=== PATIENT | male | born 1985 | race African-American/Black ===

== ENCOUNTER 2020-10-02 14:29 | Inpatient (IN) | payer OTHER ==
[2020-10-02 15:38] VITALS: BMI 24.8
[2020-10-02] MEDS ORDERED: MAG HYDROX/AL HYDROX/SIMETH 30 ML UNIT-DOSE CUP PO PRN (16:35)
[2020-10-02] MEDS ORDERED: BISMUTH SUBSALICYLATE 524 MG/30 ML PO PRN (16:35)
[2020-10-02] MEDS ORDERED: MAGNESIUM HYDROX 2400MG/30ML ORAL SUSPENSION 30 ML CUP PO PRN (16:35)
[2020-10-02] MEDS ORDERED: MENTHOL/PHENOL 1 EACH UD MM PRN (16:35)
[2020-10-02] MEDS ORDERED: hydrOXYzine PAMOATE 25 MG CAPSULE (FP) PO PRN (16:35)
[2020-10-02] MEDS ORDERED: MAGNESIUM CITRATE 300 ML BOTTLE PO PRN (16:35)
[2020-10-02] MEDS ORDERED: NICOTINE POLACRILEX 2 MG GUM BUC PRN (16:35)
[2020-10-02] MEDS ORDERED: ONDANSETRON *ODT* 4 MG TABLET SL PRN (16:35)
[2020-10-02] MEDS ORDERED: ACETAMINOPHEN 325 MG TABLET (FP) PO PRN ×2 (16:35)
[2020-10-02] MEDS ORDERED: NALOXONE (NARCAN) HCL 4 MG/0.1 ML SPRAY NS PRN (16:35)
[2020-10-02] MEDS ORDERED: METHADONE HCL 10 MG TABLET (FOR DETOX USE ONLY) PO ONE (16:38)
[2020-10-02] MEDS ORDERED: cloNIDine HCL 0.1 MG TABLET PO PRN (16:38)
[2020-10-02] MEDS: MELATONIN 5 MG TABLETS PO SCH (23:07)
[2020-10-02] MEDS: THIAMINE HCL 100 MG TABLET (FP) PO SCH (23:07)
[2020-10-03] MEDS ORDERED: METHADONE HCL 10 MG TABLET (FOR DETOX USE ONLY) ONE (09:29)
[2020-10-03] MEDS ORDERED: METHADONE HCL 5 MG TABLET (FOR DETOX USE ONLY) ONE (09:30)
[2020-10-03 10:00] LABS: HEMATOCRIT 31.1 % (35.4-49); HEMOGLOBIN 10.4 GM/dL (11.7-16.9); MCH 27.7 pg (25.7-33.7); MCHC 33.3 g/dl (32.0-35.9); MEAN CELL VOLUME 83.1 fl (80-96); MEAN PLT VOLUME 9.2 fl (7.5-11.1); PLATELET COUNT 206 K/MM3 (134-434); RBC 3.74 M/mm3 (4.00-5.60); RDW 14.8 % (11.9-15.9); WHITE BLOOD COUNT 7.7 K/mm3 (4.0-10.0)
[2020-10-03] MEDS ORDERED: METHADONE (DETOX) 20 MG, METHADONE (DETOX) 5 MG PO ONE (10:00)
[2020-10-03 10:13] LABS: ALBUMIN 3.6 g/dl (3.4-5.0); CALCIUM 8.6 mg/dL (8.5-10.1)
[2020-10-03 10:14] LABS: BLOOD UREA NITROGEN 36.8 mg/dL (7-18)
[2020-10-03 10:17] LABS: BILIRUBIN,TOTAL 0.3 mg/dL (0.2-1)
[2020-10-03 10:18] LABS: TOT PROT 6.7 g/dl (6.4-8.2)
[2020-10-03 10:19] LABS: CREATININE 2.2 mg/dL (0.55-1.3)
[2020-10-03] MEDS: PRENATAL VITAMINS W/ FOLIC ACID TABLET (FP) PO SCH (11:09)
[2020-10-03] MEDS: NICOTINE 14 MG/24 HOURS TOPICAL PATCH TD SCH (11:13)
[2020-10-03] MEDS: METHOCARBAMOL 500 MG TABLET PO PRN (12:10)
[2020-10-03] MEDS: IBUPROFEN 400 MG TABLET (FP) PO PRN (15:08)
[2020-10-03] MEDS: MELATONIN 5 MG TABLETS PO SCH (23:08)
[2020-10-03] MEDS: THIAMINE HCL 100 MG TABLET (FP) PO SCH (23:08)
[2020-10-04 09:37] VITALS: BP 131/74; PULSE 76; TEMP 96.4
[2020-10-04] MEDS ORDERED: METHADONE HCL 10 MG TABLET (FOR DETOX USE ONLY) PO ONE (10:00)
[2020-10-04] MEDS: PRENATAL VITAMINS W/ FOLIC ACID TABLET (FP) PO SCH (10:20)
[2020-10-04] MEDS: NICOTINE 14 MG/24 HOURS TOPICAL PATCH TD SCH (10:20)
[2020-10-04] MEDS: IBUPROFEN 400 MG TABLET (FP) PO PRN (10:21)
[2020-10-04] MEDS: METHOCARBAMOL 500 MG TABLET PO PRN (10:21)
[2020-10-05] MEDS ORDERED: METHADONE (DETOX) 10 MG, METHADONE (DETOX) 5 MG PO ONE (10:00)
[2020-10-06] MEDS ORDERED: METHADONE HCL 10 MG TABLET (FOR DETOX USE ONLY) PO ONE (10:00)
[2020-10-07] MEDS ORDERED: METHADONE HCL 5 MG TABLET (FOR DETOX USE ONLY) PO ONE (06:00)
== END 2020-10-04 14:48 | disposition left against medical advice (07) | DRG 770 ==
LOC: YASAS 14:29 → Y3N 16:55
PROVIDERS: ADMIT Allergy & Immunology; ATTEND Allergy & Immunology
PROC: HZ2ZZZZ Detoxification Services for Substance Abuse Treatment (ICD-10-PCS; principal; 2020-10-02)
DX: F11.23 Opioid dependence with withdrawal (principal); F17.210 Nicotine dependence, cigarettes, uncomplicated; B18.2 Chronic viral hepatitis C; R79.89 Other specified abnormal findings of blood chemistry; R74.01 Elevation of levels of liver transaminase levels; R74.8 Abnormal levels of other serum enzymes; Z88.0 Allergy status to penicillin
CPT/HCPCS: 36415; 80053; 85027; 86780; 93005; 93010; C9803; J0735; U0003; U0005

== ENCOUNTER 2020-10-26 18:13 | Inpatient (IN) | payer OTHER ==
[2020-10-26 18:32] VITALS: BMI 25.0
[2020-10-26] MEDS ORDERED: IBUPROFEN 400 MG TABLET (FP) PO PRN (19:18)
[2020-10-26] MEDS ORDERED: MENTHOL/PHENOL 1 EACH UD MM PRN (19:18)
[2020-10-26] MEDS ORDERED: BISMUTH SUBSALICYLATE 524 MG/30 ML PO PRN (19:18)
[2020-10-26] MEDS ORDERED: MAG HYDROX/AL HYDROX/SIMETH 30 ML UNIT-DOSE CUP PO PRN (19:18)
[2020-10-26] MEDS ORDERED: NICOTINE POLACRILEX 2 MG GUM BUC PRN (19:18)
[2020-10-26] MEDS ORDERED: ACETAMINOPHEN 325 MG TABLET (FP) PO PRN ×2 (19:18)
[2020-10-26] MEDS ORDERED: MAGNESIUM HYDROX 2400MG/30ML ORAL SUSPENSION 30 ML CUP PO PRN (19:18)
[2020-10-26] MEDS ORDERED: METHADONE HCL 10 MG TABLET (FOR DETOX USE ONLY) PO ONE (19:18)
[2020-10-26] MEDS ORDERED: ONDANSETRON *ODT* 4 MG TABLET SL PRN (19:18)
[2020-10-26] MEDS ORDERED: MAGNESIUM CITRATE 300 ML BOTTLE PO PRN (19:18)
[2020-10-26] MEDS: hydrOXYzine PAMOATE 25 MG CAPSULE (FP) PO SCH (21:12)
[2020-10-26] MEDS: THIAMINE HCL 100 MG TABLET (FP) PO SCH (21:12)
[2020-10-26] MEDS: MELATONIN 5 MG TABLETS PO SCH (21:12)
[2020-10-27] MEDS: hydrOXYzine PAMOATE 25 MG CAPSULE (FP) PO SCH (06:42)
[2020-10-27] MEDS ORDERED: METHADONE HCL 10 MG TABLET (FOR DETOX USE ONLY) ONE (09:33)
[2020-10-27] MEDS ORDERED: METHADONE HCL 5 MG TABLET (FOR DETOX USE ONLY) ONE (09:33)
[2020-10-27] MEDS ORDERED: METHADONE (DETOX) 20 MG, METHADONE (DETOX) 5 MG PO ONE (10:00)
[2020-10-27] MEDS: hydrOXYzine PAMOATE 25 MG CAPSULE (FP) PO PRN ×2 (10:24→18:45)
[2020-10-27] MEDS: PRENATAL VITAMINS W/ FOLIC ACID TABLET (FP) PO SCH (10:24)
[2020-10-27] MEDS: METHOCARBAMOL 500 MG TABLET PO PRN ×2 (10:27→18:45)
[2020-10-27 14:23] LABS: HEMATOCRIT 33.8 % (35.4-49); HEMOGLOBIN 10.8 GM/dL (11.7-16.9); MCH 27.2 pg (25.7-33.7); MEAN CELL VOLUME 84.9 fl (80-96); MEAN PLT VOLUME 9.1 fl (7.5-11.1); PLATELET COUNT 174 10^3/uL (134-434); RBC 3.98 M/mm3 (4.00-5.60); RDW 15.6 % (11.9-15.9); WHITE BLOOD COUNT 4.5 K/mm3 (4.0-10.0)
[2020-10-27 14:35] LABS: ALBUMIN 3.3 g/dl (3.4-5.0); CALCIUM 8.9 mg/dL (8.5-10.1)
[2020-10-27 14:40] LABS: BILIRUBIN,TOTAL 1.2 mg/dL (0.2-1); TOT PROT 7.2 g/dl (6.4-8.2)
[2020-10-27 14:46] LABS: CREATININE 0.8 mg/dL (0.55-1.3)
[2020-10-27] MEDS: cloNIDine HCL 0.1 MG TABLET PO PRN ×2 (15:44→22:27)
[2020-10-27] MEDS: MELATONIN 5 MG TABLETS PO SCH (22:27)
[2020-10-27] MEDS: THIAMINE HCL 100 MG TABLET (FP) PO SCH (22:27)
[2020-10-28] MEDS ORDERED: METHADONE HCL 10 MG TABLET (FOR DETOX USE ONLY) PO ONE (10:00)
[2020-10-28] MEDS: hydrOXYzine PAMOATE 25 MG CAPSULE (FP) PO PRN ×3 (10:03→22:29)
[2020-10-28] MEDS: METHOCARBAMOL 500 MG TABLET PO PRN (10:03)
[2020-10-28] MEDS: PRENATAL VITAMINS W/ FOLIC ACID TABLET (FP) PO SCH (10:03)
[2020-10-28] MEDS: diazePAM 5 MG TABLET PO PRN ×2 (13:18→22:29)
[2020-10-28] MEDS: MELATONIN 5 MG TABLETS PO SCH (22:29)
[2020-10-28] MEDS: THIAMINE HCL 100 MG TABLET (FP) PO SCH (22:29)
[2020-10-29] MEDS ORDERED: METHADONE HCL 10 MG TABLET (FOR DETOX USE ONLY) ONE (09:33)
[2020-10-29] MEDS ORDERED: METHADONE HCL 5 MG TABLET (FOR DETOX USE ONLY) ONE (09:33)
[2020-10-29 09:49] VITALS: TEMP 97.2
[2020-10-29] MEDS ORDERED: METHADONE (DETOX) 10 MG, METHADONE (DETOX) 5 MG PO ONE (10:00)
[2020-10-29 10:03] VITALS: BP 126/70; PULSE 58
[2020-10-29] MEDS: PRENATAL VITAMINS W/ FOLIC ACID TABLET (FP) PO SCH (10:11)
[2020-10-29] MEDS: diazePAM 5 MG TABLET PO PRN (10:13)
[2020-10-30] MEDS ORDERED: METHADONE HCL 10 MG TABLET (FOR DETOX USE ONLY) PO ONE (10:00)
[2020-10-31] MEDS ORDERED: METHADONE HCL 5 MG TABLET (FOR DETOX USE ONLY) PO ONE (06:00)
== END 2020-10-29 13:30 | disposition left against medical advice (07) | DRG 770 ==
LOC: YASAS 18:13 → Y3N 20:01
PROVIDERS: ADMIT Allergy & Immunology; ATTEND Allergy & Immunology
PROC: HZ2ZZZZ Detoxification Services for Substance Abuse Treatment (ICD-10-PCS; principal; 2020-10-26)
DX: F11.23 Opioid dependence with withdrawal (principal); F17.210 Nicotine dependence, cigarettes, uncomplicated; B19.20 Unspecified viral hepatitis C without hepatic coma; R94.5 Abnormal results of liver function studies; Z56.0 Unemployment, unspecified
CPT/HCPCS: 36415; 80053; 85027; 86780; C9803; J0735; U0003; U0005

== ENCOUNTER 2020-12-04 14:55 | Inpatient (IN) | payer OTHER ==
[2020-12-04 16:08] VITALS: BMI 24.6
[2020-12-04] MEDS ORDERED: MENTHOL/PHENOL 1 EACH UD MM PRN (19:12)
[2020-12-04] MEDS ORDERED: BISMUTH SUBSALICYLATE 524 MG/30 ML PO PRN (19:12)
[2020-12-04] MEDS ORDERED: MAGNESIUM CITRATE 300 ML BOTTLE PO PRN (19:12)
[2020-12-04] MEDS ORDERED: ONDANSETRON *ODT* 4 MG TABLET SL PRN (19:12)
[2020-12-04] MEDS ORDERED: MAG HYDROX/AL HYDROX/SIMETH 30 ML UNIT-DOSE CUP PO PRN (19:12)
[2020-12-04] MEDS ORDERED: MAGNESIUM HYDROX 2400MG/30ML ORAL SUSPENSION 30 ML CUP PO PRN (19:12)
[2020-12-04] MEDS ORDERED: ACETAMINOPHEN 325 MG TABLET (FP) PO PRN ×2 (19:12)
[2020-12-04] MEDS ORDERED: IBUPROFEN 400 MG TABLET (FP) PO PRN (19:12)
[2020-12-04] MEDS: diazePAM 5 MG TABLET PO SCH (22:16)
[2020-12-04] MEDS: MELATONIN 5 MG TABLETS PO SCH (22:17)
[2020-12-04] MEDS: hydrOXYzine PAMOATE 25 MG CAPSULE (FP) PO SCH (22:17)
[2020-12-04] MEDS: THIAMINE HCL 100 MG TABLET (FP) PO SCH (22:17)
[2020-12-04] MEDS: METHOCARBAMOL 500 MG TABLET PO PRN (22:18)
[2020-12-04] MEDS: ALBUTEROL SO4 HFA INHALER IH PRN (22:18)
[2020-12-04] MEDS: NICOTINE 10 MG CARTRIDGE (INHALER) IH PRN (22:19)
[2020-12-05] MEDS: hydrOXYzine PAMOATE 25 MG CAPSULE (FP) PO SCH ×5 (05:16→22:55)
[2020-12-05] MEDS: diazePAM 5 MG TABLET PO SCH ×4 (05:17→22:55)
[2020-12-05 09:11] LABS: HEMATOCRIT 34.1 % (35.4-49); HEMOGLOBIN 11.3 GM/dL (11.7-16.9); MEAN CELL VOLUME 84.8 fl (80-96); MEAN PLT VOLUME 8.3 fl (7.5-11.1); PLATELET COUNT 265 10^3/uL (134-434); RBC 4.02 M/mm3 (4.00-5.60); WHITE BLOOD COUNT 8.2 K/mm3 (4.0-10.0)
[2020-12-05 09:18] LABS: ALBUMIN 3.2 g/dl (3.4-5.0); BLOOD UREA NITROGEN 13.2 mg/dL (7-18); CALCIUM 8.6 mg/dL (8.5-10.1)
[2020-12-05 09:22] LABS: CREATININE 0.8 mg/dL (0.55-1.3)
[2020-12-05 09:23] LABS: BILIRUBIN,TOTAL 0.3 mg/dL (0.2-1); TOT PROT 7.4 g/dl (6.4-8.2)
[2020-12-05] MEDS: PRENATAL VITAMINS W/ FOLIC ACID TABLET (FP) PO SCH (10:24)
[2020-12-05] MEDS: BUPRENORPHINE/NALOXONE 8 MG/2 MG FILM PACKET SL SCH ×2 (10:25→22:55)
[2020-12-05] MEDS: diazePAM 5 MG TABLET PO PRN (15:24)
[2020-12-05] MEDS: METHOCARBAMOL 500 MG TABLET PO PRN (15:24)
[2020-12-05] MEDS: THIAMINE HCL 100 MG TABLET (FP) PO SCH (22:55)
[2020-12-05] MEDS: MELATONIN 5 MG TABLETS PO SCH (22:55)
[2020-12-06] MEDS: diazePAM 5 MG TABLET PO SCH ×3 (05:53→22:37)
[2020-12-06] MEDS: hydrOXYzine PAMOATE 25 MG CAPSULE (FP) PO SCH ×6 (05:53→22:36)
[2020-12-06] MEDS: NICOTINE 10 MG CARTRIDGE (INHALER) IH PRN (10:17)
[2020-12-06] MEDS: diazePAM 5 MG TABLET PO PRN ×2 (10:18→19:06)
[2020-12-06] MEDS: PRENATAL VITAMINS W/ FOLIC ACID TABLET (FP) PO SCH (10:18)
[2020-12-06] MEDS: BUPRENORPHINE/NALOXONE 8 MG/2 MG FILM PACKET SL SCH ×2 (10:19→22:36)
[2020-12-06] MEDS ORDERED: cloNIDine HCL 0.1 MG TABLET PO PRN ×2 (12:29→12:33)
[2020-12-06] MEDS: THIAMINE HCL 100 MG TABLET (FP) PO SCH (22:36)
[2020-12-06] MEDS: MELATONIN 5 MG TABLETS PO SCH (22:36)
[2020-12-07] MEDS: diazePAM 5 MG TABLET PO SCH ×2 (06:57→18:35)
[2020-12-07] MEDS: hydrOXYzine PAMOATE 25 MG CAPSULE (FP) PO SCH ×5 (06:57→22:04)
[2020-12-07] MEDS: PRENATAL VITAMINS W/ FOLIC ACID TABLET (FP) PO SCH (09:52)
[2020-12-07] MEDS: ALBUTEROL SO4 HFA INHALER IH PRN (09:53)
[2020-12-07] MEDS: BUPRENORPHINE/NALOXONE 8 MG/2 MG FILM PACKET SL SCH ×2 (09:53→22:05)
[2020-12-07] MEDS: NICOTINE 10 MG CARTRIDGE (INHALER) IH PRN ×2 (09:55→18:41)
[2020-12-07 12:48] LABS: SGOT/AST 188 U/L (15-37)
[2020-12-07 12:59] LABS: SGPT/ALT 346 U/L (13-61)
[2020-12-07] MEDS: diazePAM 5 MG TABLET PO PRN (13:37)
[2020-12-07] MEDS: VITAMINS A AND D TOPICAL OINTMENT 60 GM TUBE TP SCH ×3 (14:16→23:55)
[2020-12-07] MEDS: THIAMINE HCL 100 MG TABLET (FP) PO SCH (22:04)
[2020-12-07] MEDS: MELATONIN 5 MG TABLETS PO SCH (22:04)
[2020-12-07] MEDS: METHOCARBAMOL 500 MG TABLET PO PRN (22:06)
[2020-12-08] MEDS: hydrOXYzine PAMOATE 25 MG CAPSULE (FP) PO SCH (05:43)
[2020-12-08] MEDS ORDERED: diazePAM 5 MG TABLET PO ONE (06:00)
[2020-12-08] MEDS: NICOTINE 10 MG CARTRIDGE (INHALER) IH PRN (06:32)
[2020-12-08] MEDS: ALBUTEROL SO4 HFA INHALER IH PRN (06:33)
[2020-12-08] MEDS: VITAMINS A AND D TOPICAL OINTMENT 60 GM TUBE TP SCH (06:33)
[2020-12-08 08:51] VITALS: BP 114/70; PULSE 85; TEMP 96.8
== END 2020-12-08 09:05 | disposition home or self-care (01) | DRG 773 ==
LOC: YASAS 14:55 → Y3N 19:22
PROVIDERS: ADMIT Allergy & Immunology; ATTEND Allergy & Immunology
PROC: HZ2ZZZZ Detoxification Services for Substance Abuse Treatment (ICD-10-PCS; principal; 2020-12-04)
DX: F11.23 Opioid dependence with withdrawal (principal); F10.230 Alcohol dependence with withdrawal, uncomplicated; F14.10 Cocaine abuse, uncomplicated; F17.210 Nicotine dependence, cigarettes, uncomplicated; F31.9 Bipolar disorder, unspecified; F41.9 Anxiety disorder, unspecified; D64.9 Anemia, unspecified; E88.09 Other disorders of plasma-protein metabolism, not elsewhere classified; B18.2 Chronic viral hepatitis C; R74.01 Elevation of levels of liver transaminase levels; R03.0 Elevated blood-pressure reading, without diagnosis of hypertension; Z51.81 Encounter for therapeutic drug level monitoring; Z88.0 Allergy status to penicillin
CPT/HCPCS: 36415; 80053; 84450; 84460; 85027; 86780; 93005; 93010; C9803; U0003; U0005

== ENCOUNTER 2021-03-01 17:17 | Inpatient (IN) | payer OTHER ==
[2021-03-01] MEDS ORDERED: MAGNESIUM HYDROX 2400MG/30ML ORAL SUSPENSION 30 ML CUP PO PRN (19:59)
[2021-03-01] MEDS ORDERED: NICOTINE 10 MG CARTRIDGE (INHALER) IH PRN (19:59)
[2021-03-01] MEDS ORDERED: MAGNESIUM CITRATE 300 ML BOTTLE PO PRN (19:59)
[2021-03-01] MEDS ORDERED: ACETAMINOPHEN 325 MG TABLET (FP) PO PRN ×2 (19:59)
[2021-03-01] MEDS ORDERED: BISMUTH SUBSALICYLATE 524 MG/30 ML PO PRN (19:59)
[2021-03-01] MEDS ORDERED: NALOXONE (NARCAN) HCL 4 MG/0.1 ML SPRAY NS PRN (19:59)
[2021-03-01] MEDS ORDERED: NALOXONE HCL 0.4 MG/ML VIAL IM PRN (19:59)
[2021-03-01] MEDS ORDERED: IBUPROFEN 400 MG TABLET (FP) PO PRN (19:59)
[2021-03-01] MEDS ORDERED: guaiFENesin 200 MG/10 ML 10 ML UNIT-DOSE CUPS PO PRN (19:59)
[2021-03-01] MEDS ORDERED: MENTHOL/PHENOL 1 EACH UD MM PRN (19:59)
[2021-03-01] MEDS ORDERED: DICYCLOMINE HCL 10 MG CAPSULE PO PRN (19:59)
[2021-03-01] MEDS ORDERED: P-EPHED 60MG/TRIPROLIDI 2.5MG TABLET PO PRN (19:59)
[2021-03-01] MEDS ORDERED: MAG HYDROX/AL HYDROX/SIMETH 30 ML UNIT-DOSE CUP PO PRN (19:59)
[2021-03-01] MEDS ORDERED: methaDONE HCL 10 MG TABLET (FOR DETOX USE ONLY) PO ONE (20:30)
[2021-03-01 21:37] VITALS: BMI 25.3
[2021-03-01] MEDS: METHOCARBAMOL 500 MG TABLET PO PRN (22:53)
[2021-03-01] MEDS: MELATONIN 5 MG TABLETS PO SCH (22:53)
[2021-03-01] MEDS: cloNIDine HCL 0.1 MG TABLET PO PRN (22:53)
[2021-03-01] MEDS: THIAMINE HCL 100 MG TABLET (FP) PO SCH (22:53)
[2021-03-01] MEDS: diazePAM 5 MG TABLET PO PRN (22:55)
[2021-03-02] MEDS ORDERED: methaDONE HCL 10 MG TABLET (FOR DETOX USE ONLY) ONE (08:56)
[2021-03-02] MEDS: PRENATAL VITAMINS W/ FOLIC ACID TABLET (FP) PO SCH (10:34)
[2021-03-02] MEDS: NICOTINE 21 MG/24 HOURS TOPICAL PATCH TD SCH (10:34)
[2021-03-02] MEDS: METHOCARBAMOL 500 MG TABLET PO PRN ×2 (10:36→22:18)
[2021-03-02 10:56] LABS: HEMATOCRIT 34.7 % (35.4-49); HEMOGLOBIN 11.4 GM/dL (11.7-16.9); MCH 27.7 pg (25.7-33.7); MCHC 32.9 g/dl (32.0-35.9); MEAN CELL VOLUME 84.3 fl (80-96); MEAN PLT VOLUME 8.1 fl (7.5-11.1); PLATELET COUNT 300 10^3/uL (134-434); RBC 4.12 M/mm3 (4.00-5.60); RDW 15.7 % (11.9-15.9); WHITE BLOOD COUNT 5.2 K/mm3 (4.0-10.0)
[2021-03-02 10:57] LABS: BLOOD UREA NITROGEN 14.1 mg/dL (7-18); CALCIUM 8.6 mg/dL (8.5-10.1)
[2021-03-02 10:58] LABS: ALBUMIN 3.1 g/dl (3.4-5.0)
[2021-03-02 11:01] LABS: CREATININE 0.9 mg/dL (0.55-1.3)
[2021-03-02 11:02] LABS: BILIRUBIN,TOTAL 0.4 mg/dL (0.2-1)
[2021-03-02 11:03] LABS: TOT PROT 6.9 g/dl (6.4-8.2)
[2021-03-02] MEDS: cloNIDine HCL 0.1 MG TABLET PO PRN ×2 (13:55→22:18)
[2021-03-02] MEDS: diazePAM 5 MG TABLET PO PRN ×2 (14:38→19:15)
[2021-03-02] MEDS: THIAMINE HCL 100 MG TABLET (FP) PO SCH (22:18)
[2021-03-02] MEDS: MELATONIN 5 MG TABLETS PO SCH (22:18)
[2021-03-03] MEDS ORDERED: ALBUTEROL SO4 HFA INHALER IH PRN (09:50)
[2021-03-03] MEDS ORDERED: methaDONE HCL 10 MG TABLET (FOR DETOX USE ONLY) PO ONE (10:00)
[2021-03-03] MEDS: diazePAM 5 MG TABLET PO PRN ×3 (10:20→22:31)
[2021-03-03] MEDS: cloNIDine HCL 0.1 MG TABLET PO PRN (10:20)
[2021-03-03] MEDS: METHOCARBAMOL 500 MG TABLET PO PRN (10:20)
[2021-03-03] MEDS: PRENATAL VITAMINS W/ FOLIC ACID TABLET (FP) PO SCH (10:21)
[2021-03-03] MEDS: NICOTINE 21 MG/24 HOURS TOPICAL PATCH TD SCH (10:22)
[2021-03-03 17:53] VITALS: TEMP 96.9
[2021-03-03 21:22] VITALS: BP 145/64; PULSE 57
[2021-03-03] MEDS: THIAMINE HCL 100 MG TABLET (FP) PO SCH (22:31)
[2021-03-03] MEDS: MELATONIN 5 MG TABLETS PO SCH (22:31)
[2021-03-04] MEDS ORDERED: MASKS NR ONE (07:18)
[2021-03-04] MEDS: NICOTINE 21 MG/24 HOURS TOPICAL PATCH TD SCH (11:01)
[2021-03-04] MEDS: PRENATAL VITAMINS W/ FOLIC ACID TABLET (FP) PO SCH (11:01)
[2021-03-05] MEDS ORDERED: methaDONE HCL 10 MG TABLET (FOR DETOX USE ONLY) PO ONE (10:00)
== END 2021-03-04 08:56 | disposition left against medical advice (07) | DRG 770 ==
LOC: YASAS 17:17 → Y3W 20:14 → Y3N 20:16
PROVIDERS: ADMIT Allergy & Immunology; ATTEND Allergy & Immunology
PROC: HZ2ZZZZ Detoxification Services for Substance Abuse Treatment (ICD-10-PCS; principal; 2021-03-01)
DX: F11.23 Opioid dependence with withdrawal (principal); F14.20 Cocaine dependence, uncomplicated; F17.210 Nicotine dependence, cigarettes, uncomplicated; F19.24 Other psychoactive substance dependence with psychoactive substance-induced mood disorder; F41.9 Anxiety disorder, unspecified; B19.20 Unspecified viral hepatitis C without hepatic coma; D64.9 Anemia, unspecified; M54.50 Low back pain, unspecified; G89.29 Other chronic pain; L84 Corns and callosities; R74.01 Elevation of levels of liver transaminase levels; Z76.5 Malingerer [conscious simulation]; Z88.0 Allergy status to penicillin
CPT/HCPCS: 36415; 80053; 82962; 85027; 86780; 93005; 93010; C9803; J0735; U0003; U0005

== ENCOUNTER 2021-07-29 22:27 | Observation (INO) | payer OTHER ==
[2021-07-29 22:48] VITALS: TEMP 97.8; BMI 27.2
[2021-07-29 23:17] LABS: BASO % 0.6 % (0-2.0); EOS % 7.8 % (0-4.5); HEMATOCRIT 31.7 % (35.4-49); HEMOGLOBIN 10.5 GM/dL (11.7-16.9); LYMPH % 35.1 % (8-40); MEAN CELL VOLUME 84.8 fl (80-96); MEAN PLT VOLUME 7.7 fl (7.5-11.1); MONO % 9.4 % (3.8-10.2); NEUT % 47.1 % (42.8-82.8); PLATELET COUNT 204 10^3/uL (134-434); RBC 3.74 M/mm3 (4.00-5.60); RDW 13.8 % (11.9-15.9); WHITE BLOOD COUNT 6.7 K/mm3 (4.0-10.0)
[2021-07-29 23:41] LABS: CALCIUM 8.8 mg/dL (8.5-10.1)
[2021-07-29 23:42] LABS: ALBUMIN 3.2 g/dl (3.4-5.0); BLOOD UREA NITROGEN 10.6 mg/dL (7-18); MAGNESIUM 1.9 mg/dL (1.8-2.4)
[2021-07-29 23:45] LABS: BILIRUBIN,TOTAL 0.2 mg/dL (0.2-1); CREATININE 0.8 mg/dL (0.55-1.3); PHOSPHOROUS 3.4 mg/dL (2.5-4.9); TOT PROT 6.7 g/dl (6.4-8.2)
[2021-07-30 02:05] LABS: COCAINE, UR POSITIVE (NEGATIVE); METHADONE, UR NEGATIVE (NEGATIVE); OPIATES, URI POSITIVE (NEGATIVE); PHENCYCLIDINE,URINE NEGATIVE (NEGATIVE); URINE AMPHETAMINES NEGATIVE (NEGATIVE); URINE BARBITURATES NEGATIVE (NEGATIVE); URINE BENZODIAZEPINES NEGATIVE (NEGATIVE)
[2021-07-30] MEDS ORDERED: chlordiazePOXIDE HCL 25 MG CAPSULE PO PRN (02:48)
[2021-07-30] MEDS ORDERED: FOLIC ACID INJECTION - 1 MG, THIAMINE HCL 100 MG, MULTIVIT INJECTION ADULT 10 ML in SOD... IVPB ONE (02:50)
[2021-07-30] MEDS ORDERED: LEDIPASVIR PO SCH (10:00)
[2021-07-30] MEDS ORDERED: [UNRECOGNIZED DRUG - OTHER] PO SCH (10:00)
[2021-07-30] MEDS ORDERED: SOFOSBUVIR PO SCH (10:00)
[2021-07-30] MEDS: chlordiazePOXIDE HCL 25 MG CAPSULE PO SCH ×3 (10:56→17:27)
[2021-07-30] MEDS: FOLIC ACID 1 MG TABLET (FP) PO SCH (10:57)
[2021-07-30] MEDS: THIAMINE HCL 100 MG TABLET (FP) PO SCH (10:57)
[2021-07-30] MEDS: ENOXAPARIN NA (PORCINE) 40 MG/0.4 ML DISP.SYRIN SQ SCH (11:00)
[2021-07-30 18:11] VITALS: BP 107/61; PULSE 37
[2021-07-30] MEDS ORDERED: methaDONE HCL 10 MG TABLET PO ONE (21:18)
[2021-07-30] MEDS ORDERED: methaDONE HCL 10 MG TABLET ONE (21:25)
[2021-07-31] MEDS ORDERED: chlordiazePOXIDE HCL 25 MG CAPSULE PO SCH (05:00)
[2021-07-31] MEDS: chlordiazePOXIDE HCL 25 MG CAPSULE PO SCH (05:51)
[2021-07-31] MEDS ORDERED: methaDONE HCL 10 MG TABLET PO ONE (08:32)
[2021-07-31] MEDS ORDERED: cloNIDine HCL 0.1 MG TABLET PO PRN (08:32)
[2021-07-31] MEDS: FOLIC ACID 1 MG TABLET (FP) PO SCH (09:25)
[2021-07-31] MEDS: THIAMINE HCL 100 MG TABLET (FP) PO SCH (09:25)
[2021-07-31] MEDS: ENOXAPARIN NA (PORCINE) 40 MG/0.4 ML DISP.SYRIN SQ SCH (09:31)
[2021-08-01] MEDS ORDERED: chlordiazePOXIDE HCL 10 MG CAPSULE PO PRN
[2021-08-01] MEDS ORDERED: chlordiazePOXIDE HCL 10 MG CAPSULE PO SCH (05:00)
[2021-08-02] MEDS ORDERED: chlordiazePOXIDE HCL 10 MG CAPSULE PO SCH (05:00)
[2021-08-02] MEDS ORDERED: methaDONE HCL 10 MG TABLET PO ONE (10:00)
[2021-08-03] MEDS ORDERED: chlordiazePOXIDE HCL 10 MG CAPSULE PO ONE (05:00)
[2021-08-04] MEDS ORDERED: methaDONE HCL 10 MG TABLET PO ONE (10:00)
== END 2021-07-31 13:36 | disposition other institution (70) ==
LOC: JER 22:27 → JERBED 07-30 01:34 → J4W 07-30 08:24
PROVIDERS: ADMIT Internal Medicine; ATTEND Internal Medicine
PROC: 3E033GC Introduction of Other Therapeutic Substance into Peripheral Vein, Percutaneous Approach (ICD-10-PCS; principal; 2021-07-30)
DX: R00.1 Bradycardia, unspecified (principal); F11.90 Opioid use, unspecified, uncomplicated; F10.99 Alcohol use, unspecified with unspecified alcohol-induced disorder; F19.10 Other psychoactive substance abuse, uncomplicated; G89.29 Other chronic pain; M54.59 Other low back pain; B19.20 Unspecified viral hepatitis C without hepatic coma; F31.9 Bipolar disorder, unspecified; F41.8 Other specified anxiety disorders; D64.9 Anemia, unspecified; Z88.0 Allergy status to penicillin; F17.210 Nicotine dependence, cigarettes, uncomplicated
CPT/HCPCS: 36415; 71045-TC-FY; 80053; 80307; 83735; 84100; 84484; 85025; 93005; 93010; 93017; 93018; 93306-TC; 96365; 99285-25; C9803-CS; G0378; U0003; U0005

== ENCOUNTER 2022-11-16 16:37 | Inpatient (IN) | payer OTHER ==
[2022-11-16] MEDS ORDERED: ONDANSETRON 8 MG TABLET (FP) PO ONE (20:25)
[2022-11-16] MEDS ORDERED: ONDANSETRON *ODT* 4 MG TABLET ONE (20:30)
[2022-11-16 20:50] VITALS: BMI 25.0
[2022-11-16] MEDS ORDERED: POLYETHYLENE GLYCOL (HEALTHYLAX) 3350 17 GM PACKET PO PRN (22:58)
[2022-11-16] MEDS ORDERED: NALOXONE HCL 0.4 MG/ML VIAL IM PRN (22:58)
[2022-11-16] MEDS ORDERED: BENZOCAINE/MENTHOL (CHLORASEPTIC ) LOZENGE MM PRN (22:58)
[2022-11-16] MEDS ORDERED: IBUPROFEN 600 MG TABLET (FP) PO PRN (22:58)
[2022-11-16] MEDS ORDERED: MAGNESIUM HYDROX 2400MG/30ML ORAL SUSPENSION 30 ML CUP PO PRN (22:58)
[2022-11-16] MEDS ORDERED: DICYCLOMINE HCL 10 MG CAPSULE PO PRN (22:58)
[2022-11-16] MEDS ORDERED: BENZONATATE 200 MG CAPSULE PO PRN (22:58)
[2022-11-16] MEDS ORDERED: BISMUTH SUBSALICYLATE 524 MG/30 ML PO PRN (22:58)
[2022-11-16] MEDS ORDERED: LOPERAMIDE HCL 2 MG CAPSULE PO PRN (22:58)
[2022-11-16] MEDS ORDERED: IBUPROFEN 400 MG TABLET (FP) PO PRN (22:58)
[2022-11-16] MEDS ORDERED: NICOTINE POLACRILEX 2 MG GUM BUC PRN (22:58)
[2022-11-16] MEDS ORDERED: guaiFENesin 600 MG TABLET.ER (FP) PO PRN (22:58)
[2022-11-16] MEDS ORDERED: NALOXONE HCL (KLOXXADO) 8 MG SPRAY NS PRN (22:58)
[2022-11-16] MEDS ORDERED: ONDANSETRON *ODT* 4 MG TABLET SL PRN (22:58)
[2022-11-16] MEDS ORDERED: MAG HYDROX/AL HYDROX/SIMETH 30 ML UNIT-DOSE CUP PO PRN (22:58)
[2022-11-16] MEDS ORDERED: ACETAMINOPHEN 325 MG TABLET (FP) PO PRN (22:58)
[2022-11-16] MEDS ORDERED: methaDONE HCL 10 MG TABLET (FOR DETOX USE ONLY) PO ONE (23:45)
[2022-11-17] MEDS: cloNIDine HCL 0.1 MG TABLET PO PRN ×2 (06:57→22:09)
[2022-11-17] MEDS: METHOCARBAMOL 500 MG TABLET PO PRN ×2 (06:57→14:36)
[2022-11-17] MEDS ORDERED: ALBUTEROL SO4 HFA INHALER IH PRN (08:15)
[2022-11-17] MEDS ORDERED: [UNRECOGNIZED DRUG - OTHER] PO SCH (10:00)
[2022-11-17] MEDS ORDERED: SOFOSBUVIR PO SCH (10:00)
[2022-11-17] MEDS ORDERED: LEDIPASVIR PO SCH (10:00)
[2022-11-17] MEDS: NICOTINE 14 MG/24 HOURS TOPICAL PATCH TD SCH (10:35)
[2022-11-17] MEDS: PRENATAL VITAMINS W/ FOLIC ACID TABLET (FP) PO SCH (10:35)
[2022-11-17 11:33] LABS: HEMATOCRIT 34.5 % (35.4-49); HEMOGLOBIN 11.3 GM/dL (11.7-16.9); MCH 27.3 pg (25.7-33.7); MCHC 32.9 g/dl (32.0-35.9); MEAN CELL VOLUME 83.2 fl (80-96); MEAN PLT VOLUME 7.9 fl (7.5-11.1); PLATELET COUNT 238 10^3/uL (134-434); RBC 4.15 M/mm3 (4.00-5.60); RDW 13.6 % (11.9-15.9); WHITE BLOOD COUNT 6.4 K/mm3 (4.0-10.0)
[2022-11-17 12:17] LABS: POTASSIUM 4.1 mmol/L (3.5-5.1)
[2022-11-17 12:19] LABS: CALCIUM 8.8 mg/dL (8.5-10.1)
[2022-11-17 12:20] LABS: BLOOD UREA NITROGEN 11.7 mg/dL (7-18)
[2022-11-17 12:21] LABS: ALBUMIN 3.6 g/dl (3.4-5.0)
[2022-11-17 12:23] LABS: CREATININE 0.8 mg/dL (0.55-1.3)
[2022-11-17 12:24] LABS: TOT PROT 7.1 g/dl (6.4-8.2)
[2022-11-17 12:25] LABS: BILIRUBIN,TOTAL 0.2 mg/dL (0.2-1)
[2022-11-17] MEDS: hydrOXYzine PAMOATE 25 MG CAPSULE (FP) PO PRN (14:36)
[2022-11-17] MEDS ORDERED: TRIMETHOBENZAMIDE HCL 200MG/2ML INJ IM ONE (19:26)
[2022-11-17] MEDS ORDERED: THIAMINE HCL 100 MG TABLET (FP) PO SCH (22:00)
[2022-11-17] MEDS ORDERED: MELATONIN 5 MG TABLETS PO SCH (22:00)
[2022-11-18] MEDS: hydrOXYzine PAMOATE 25 MG CAPSULE (FP) PO PRN (06:30)
[2022-11-18] MEDS: METHOCARBAMOL 500 MG TABLET PO PRN (06:30)
[2022-11-18] MEDS: cloNIDine HCL 0.1 MG TABLET PO PRN (06:30)
[2022-11-18 09:24] VITALS: BP 116/63; PULSE 49; RESP 18; TEMP 97.6
[2022-11-18] MEDS ORDERED: methaDONE HCL 10 MG TABLET (FOR DETOX USE ONLY) PO ONE (10:00)
[2022-11-18] MEDS: NICOTINE 14 MG/24 HOURS TOPICAL PATCH TD SCH (11:09)
[2022-11-18] MEDS: PRENATAL VITAMINS W/ FOLIC ACID TABLET (FP) PO SCH (11:09)
[2022-11-19] MEDS ORDERED: PNEUMOC 20-VAL CONJ-DIP CRM/PF 0.5 ML SYRINGE IM ONE (12:00)
[2022-11-20] MEDS ORDERED: methaDONE HCL 10 MG TABLET (FOR DETOX USE ONLY) PO ONE (10:00)
== END 2022-11-18 09:25 | disposition left against medical advice (07) | DRG 770 ==
LOC: YASAS 16:37 → Y3N 23:25 → Y6N 23:27
PROVIDERS: ADMIT Allergy & Immunology; ATTEND Surgery
PROC: HZ2ZZZZ Detoxification Services for Substance Abuse Treatment (ICD-10-PCS; principal; 2022-11-16)
DX: F11.23 Opioid dependence with withdrawal (principal); F16.20 Hallucinogen dependence, uncomplicated; F17.210 Nicotine dependence, cigarettes, uncomplicated; F19.24 Other psychoactive substance dependence with psychoactive substance-induced mood disorder; M54.50 Low back pain, unspecified; G89.29 Other chronic pain; R11.2 Nausea with vomiting, unspecified; Z86.19 Personal history of other infectious and parasitic diseases; Z88.0 Allergy status to penicillin
CPT/HCPCS: 26055; 36415; 80053; 85027; 86780; 87635; 93005; 93010